=== PATIENT | female | born 1945 | race Caucasian/White ===

== ENCOUNTER 2019-08-23 13:12 | Outpatient (CLI) | payer MEDICARE ==
[2019-08-23 13:44] LABS: Bilirubin Negative (Negative); Blood, Urine Negative (Negative); Glucose, Urine (Dipstick) Negative (Negative); Leukocyte Moderate (Negative); Nitrite Negative (Negative); Protein, Urine (Dipstick) Negative (Neg-Trace); Urobilinogen 0.2 mg/dL (Less than 2)
[2019-08-23 13:49] LABS: Bacteria/HPF 1+ HPF (None Seen); Clarity Hazy (Clear); RBC/HPF 0-3 HPF (0-3); Squamous Epithelial 0-3 HPF (0-3); WBC/HPF Greater than 50 HPF (0-3)
== END 2019-08-23 13:13 | disposition home or self-care (01) ==
LOC: MADLAB 13:12
PROVIDERS: ATTEND Urology
DX: T81.41XD Infection following a procedure, superficial incisional surgical site, subsequent encounter (principal); N28.1 Cyst of kidney, acquired
CPT/HCPCS: 81001

== ENCOUNTER 2019-08-25 17:05 | Outpatient (CLI) | payer MEDICARE ==
[2019-08-25 18:35] LABS: Bilirubin Negative (Negative); Blood, Urine Trace (Negative); Clarity Slightly Cloudy (Clear); Glucose, Urine (Dipstick) Negative (Negative); Leukocyte Small (Negative); Nitrite Positive (Negative); Protein, Urine (Dipstick) Negative (Neg-Trace); Urobilinogen 0.2 mg/dL (Less than 2)
[2019-08-25 18:57] LABS: Bacteria/HPF 2+ HPF (None Seen); Squamous Epithelial 0-3 HPF (0-3); WBC/HPF Greater Than 50 HPF (0-3)
== END 2019-08-25 17:06 | disposition home or self-care (01) ==
LOC: MADLAB 17:05
PROVIDERS: ATTEND Urology
DX: T81.41XD Infection following a procedure, superficial incisional surgical site, subsequent encounter (principal); N28.1 Cyst of kidney, acquired
CPT/HCPCS: 81001; 87077; 87086; 87186